=== PATIENT | female | born 1940 | race Caucasian/White ===

== ENCOUNTER 2023-11-03 10:05 | Day surgery (SDC) | payer MEDICARE ==
[~2023-11-03] VITALS: Ht 142.2 cm; Wt 52.2 kg
[2023-11-03] MEDS ORDERED: IV NS 0.9% 250 ML IV ONE (13:13)
[2023-11-03] MEDS ORDERED: IOHEXOL-350 100 ML VIAL IV ONE ×2 (13:13→13:37)
[2023-11-03] MEDS ORDERED: METOPROLOL TARTRATE INJ 5 MG/5 ML AMPUL ONE (13:29)
[2023-11-03] MEDS ORDERED: NITROGLYCERIN 0.4 MG/TAB BOTTLE ONE (13:29)
[2023-11-03] MEDS ORDERED: NITROGLYCERIN 0.4 MG/TAB BOTTLE SL ONE (13:30)
[2023-11-03] MEDS ORDERED: METOPROLOL TARTRATE INJ 5 MG/5 ML AMPUL IVP PRN (13:30)
[2023-11-03 13:32] VITALS: BP 152/59
== END 2023-11-03 13:53 | disposition short-term general hospital (02) ==
LOC: CT 10:05
PROVIDERS: ATTEND Internal Medicine Interventional Cardiology
DX: I65.23 Occlusion and stenosis of bilateral carotid arteries (principal); I25.10 Atherosclerotic heart disease of native coronary artery without angina pectoris; I70.0 Atherosclerosis of aorta
CPT/HCPCS: 75574; J3490; J7050; Q9967 ×2